=== PATIENT | female | born 1970 | race Caucasian/White ===

== ENCOUNTER 2023-06-20 18:23 | Emergency (ER) | payer BC, SELFPAY ==
[2023-06-20 18:28] VITALS: BP 141/79
[2023-06-20 19:52] VITALS: BMI 20.3
--- NOTE | 2023-06-20 20:14 | ED.GENMED ---
History of Present Illness
General
Chief Complaint: Post Operative Problem(s)
Source: patient
Time Seen by Provider: 06/20/23 19:35
Travel History
Have you had any contact with someone who has COVID-19?: No
Do you have any symptoms of coronavirus? Fever > 100 degrees, chills, cough, shortness of breath, sore throat, loss of taste or smell, muscle aches, or headache?: No
History of Present Illness
History of Present Illness:
53-year-old female presents to the emergency room for evaluation of confusion and feeling 'out of sorts'. Patient has been feeling this way since she had removal of her breast implants at [facility] on Wednesday. Patient was told that there
was difficulty arousing her from anesthesia. She was quite confused for a while after the procedure. Since being discharged she continues to feel like she has poor recollection and some confusion. She states she is not taking any prescription
medications for postoperative pain.
Past History
Past History
ED Past Medical History: None
ED Past Surgical History: None
Social History
Tobacco: Non-smoker
Alcohol: None
Personal: Single
Employment: Not employed
Phy Exam
Physical Exam
Physical Exam:
General: Awake, Alert, Oriented X3. No acute distress. Patient follows multistep instructions without difficulty. She is speaking quite clearly at this time.
Vitals: unremarkable
Head: Atraumatic
Eyes: Pupils equal, EOMI
Throat: Airway intact, no exudates
Neck: Trachea midline
Lungs: Clear and equal b/l
Heart: Regular rate, no murmurs
Abd: Soft, Nontender, No pulsatile mass
Neuro: Cranial nerves intact, muscle strength equal bilaterally, cerebellar exam normal
Skin: Warm, dry, no rash
Extremities: pulses equal b/l, no edema
Course
Orders/Labs/Results
Orders:
Orders
06/20/23 20:11
CT Head W/o Iv Contrast Urgent
Comment:
Reason For Exam: confusion since recent surgery
0.9% Sodium Chloride 500 ml [Nss] 500 ml IV BOLUS
06/20/23 20:20
Complete Blood Count/With Diff Urgent
Comprehensive Metabolic Panel Urgent
06/20/23 21:56
Urinalysis Reflex To Culture Urgent
Date Specimen was Collected: 06/20/23
Time Specimen was Collected: 21:54
Abnormal Lab Results
06/20/23
20:20
RBC 3.96 L 10^6/uL
(4.20-5.40)
Hct 36.0 L %
(37.0-47.0)
MCH 31.8 H pg
(27.0-31.0)
Glucose 105 H mg/dl
(70-99)
06/20/23 20:20
06/20/23 20:20
Vital Signs
Initial and Last Documented VS:
Initial Vital Signs
Temp Pulse Resp BP Pulse Ox
99.4 F 97 16 141/79 96
06/20/23 18:28 06/20/23 18:28 06/20/23 18:28 06/20/23 18:28 06/20/23 18:28
Last Documented Vital Signs
Temp Pulse Resp BP Pulse Ox
99.4 F 79 18 125/79 100
06/20/23 18:28 06/20/23 22:15 06/20/23 22:15 06/20/23 20:15 06/20/23 22:15
MDM/Problems Addressed
Differential Diagnosis Includes:
Hyponatremia, hypocalcemia, dehydration, intracranial event
MDM/Problems Addressed:
CT head is unremarkable. Labs are unremarkable. Patient has a nonfocal neurologic exam. Urinalysis is unremarkable. I suspect the patient is continuing to feel aftereffects from anesthesia. However there is no evidence for a unstable process
ongoing. She is completely oriented and able to provide a detailed history and have a in-depth conversation. So that she may subjectively feel unwell objectively she seems well. She denies taking any [id number] or prescription medications
for pain.
*Radiology
Radiology exam reviewed: radiology read reviewed
*Pulse Oximetry
Patient hypoxic: no
*Critical Care Note
Total Time (30-74mins, 75-104mins- exclusive of procedures): Not Applicable
Patient Management
Social determinants of health affecting care: Strong social support
ED Attending Note
-
Portions of this chart may have been created with voice recognition software.� Occasional wrong word or��sound alike� substitutions may have occurred due to the inherent limitations of voice recognition software.
Discharge Plan
Departure
Patient Disposition: Home (Routine Discharge)
Date of Disposition: 06/20/23
Time of Disposition: 22:48
Patient with high blood pressure during this ER visit?: No
Condition: Good
Discharge Problem:
Confusion
Instructions: Delirium (Confusion) (DC)
Prescriptions:
No Action
Lactobac/Bifidobac [Visbiome]
1 cap PO DAILY Qty: 30 0RF
hydrocodone-acetaminophen 5-300 mg tablet
1 tab PO Q12H PRN (Reason: severe pain) Qty: 10 0RF
ondansetron HCl 8 mg tablet
8 mg PO Q8H PRN (Reason: nausea and vomiting) Qty: 20 0RF
hyoscyamine sulfate [Levsin] 0.125 mg tablet
0.125 mg PO QID PRN (Reason: abdominal pain) Qty: 30 0RF
Referrals:
NONE,* [Family Provider] -
Activity Restrictions/Additional Instructions:
I suspect you are having lingering effects from anesthesia. This should slowly go away. Please follow up with your surgeon on Wednesday
Interventions
Interventions:
*Risk Screen - Suicide Last Done: 06/20/23 18:28
*General Assessment Last Done: 06/20/23 19:52
*Neglect/Abuse Screening Last Done: 06/20/23 18:28
ED- Fall Risk Assessment Last Done: 06/20/23 22:28
*ED COVID-19 Vaccine History Last Done: 06/20/23 18:28
ED-Skin Assessment Last Done: 06/20/23 22:35
[2023-06-20 20:15] VITALS: BP 125/79
[2023-06-20] MEDS: NSS 500 IV (20:17)
[2023-06-20 20:27] LABS: % Basophils 0.7 % (0-2); % Eosinophils 1.7 % (0-6); % Immature Granulocytes 0.4 % (0-0.5); % Lymphocytes 30.4 % (20.5-51.1); % Monocytes 5.1 % (1.7-9.3); % Neutrophils 61.7 % (42.2-75.2); Absolute Basophils 0.1 10^3/uL (0-0.2); Absolute Eosinophils 0.1 10^3/uL (0-0.7); Absolute Lymphocytes 2.2 10^3/uL (1.2-3.4); Absolute Monocytes 0.4 10^3/uL (0.1-0.6); Absolute Neutrophils 4.5 10^3/uL (1.4-6.5); Hemoglobin 12.6 g/dL (12.0-16.0); Mean Corpuscular Hgb 31.8 pg (27.0-31.0); Mean Corpuscular Volume 90.9 fL (81.0-99.0); Mean Platelet Volume 8.9 fL (7.4-10.4); Nucleated Red Blood Cells % 0 %; Platelet Count 287 10^3/uL (130-400); Red Blood Cell Count 3.96 10^6/uL (4.20-5.40); Red Cell Dist. Width 12.1 % (11.5-14.5); White Blood Cell Count 7.3 10^3/uL (4.8-10.8)
[2023-06-20 20:47] LABS: ALT (SGPT) 29 U/L (0-35); AST (SGOT) 36 U/L (14-36); Albumin 3.9 g/dl (3.5-5.0); Alkaline Phosphatase 78 U/L (38-126); Blood Urea Nitrogen 17 mg/dl (7-17); Calcium 9.5 mg/dl (8.4-10.2); Carbon Dioxide 30 mmol/L (22-30); Chloride 102 mmol/L (98-107); Estimated Creatinine Clearance 81 ml/min; Glucose 105 mg/dl (70-99); Potassium 4.1 mmol/L (3.5-5.1); Sodium 137 mmol/L (135-145); Total Bilirubin 0.3 mg/dl (0.2-1.3); Total Protein 6.3 g/dl (6.3-8.2); eGFR > 60.00
[2023-06-20 22:03] LABS: Urine Albumin Negative (Neg - Trace); Urine Bilirubin Negative (Negative); Urine Character Clear (Clear); Urine Color Straw; Urine Glucose Negative (Negative); Urine Ketone Negative (Negative); Urine Leukocyte Negative (Negative); Urine Nitrite Negative (Negative); Urine Occult Blood Negative (Negative); Urine Urobilinogen Negative (Neg - 1+)
[2023-06-20 22:36] VITALS: BP 124/73
[2023-06-20 23:00] VITALS: BP 117/73
[2023-06-20 23:14] VITALS: BP 130/81
[2023-06-20 23:20] VITALS: BP 130/81
== END 2023-06-20 23:23 | disposition home or self-care (01) ==
LOC: EMR 18:23
PROVIDERS: EMERGENCY PHYSICIAN Emergency Medicine
DX: R41.0 Disorientation, unspecified (principal); Z98.82 Breast implant status
CPT/HCPCS: 99284; 96360; 70450; 80053; 81003; 85025

== ENCOUNTER 2024-03-05 17:44 | Emergency (ER) | payer BC, SELFPAY ==
[2024-03-05 17:54] VITALS: BP 153/104
--- NOTE | 2024-03-05 18:19 | ED.GENMED ---
History of Present Illness
General
Chief Complaint: Urinary Symptoms
Source: patient
Exam Limitations: none
Time Seen by Provider: 03/05/24 17:58
History of Present Illness
History of Present Illness:
This is a 54 year old female that comes in with c/o UTI and back pain. States that she has had a UTI for the pasdt 17 days. State that she has taken 2 antibiotics with the first being Cipro and she had an allergic reaction. States that she had
trouble breathing and nausea. Then she was place on Bactrim DS. States that she is not getting any better and know she has back pain. Mostly on the left and a little on the right. States that her PCP is concerned that she is getting a Kidney
infection. State that she feels hot, has been nauseated and occasional diarrhea. States that she feels that she is in a brain fog. States that she has urinary frequency and burning. Denies any fever, chills, chest pain, SOB, abd pain, vomiting,
headache, dizziness.
Past History
Past History
ED Past Medical History: Other (Colitis, Renal calculus, UTI, ); Negative Asthma, HTN, Hypercholesterolemia or NIDDM
ED Past Surgical History: None and Other (Multiple breast surgery)
Social History
Tobacco: Non-smoker
Alcohol: None
Personal: Single
Living: alone
Employment: Not employed
Review of Systems
Review of Systems
All Other Systems: ROS reviewed and negative except as documented in HPI and ROS
Constitutional: Reports no symptoms; Denies fever or chills
EENT: Reports no symptoms
Respiratory: Reports no symptoms; Denies cough or trouble breathing
Cardiac: Reports no symptoms; Denies chest pain
ABD/GI: Reports nausea and diarrhea (Occasional); Denies abdominal pain or vomiting
: Reports dysuria and frequency; Denies urgency
Musculoskeletal: Reports back pain (back pain)
Skin: Reports no symptoms
Neurological: Reports other (Feels she has brain fog); Denies dizzy or headache
Psychiatric: Reports no symptoms
Phy Exam
General Physical Exam
General Presentation: no apparent distress
General age: appears stated age
General Skin: warm and dry
General Habitus: normal
General Mental: alert
General Hydration: appears well hydrated
ENT Exam
ENT Exam: TM's normal, pharynx normal and neck supple
Eye Exam
Eye Exam: EOMI
Cardiovascular Exam
Cardiovascular Exam: regular rate/rhythm, no edema, no murmur and normal peripheral pulses
Pulmonary Exam
Pulmonary Exam: lungs clear, no respiratory distress, no rales, chest non tender, no crackles, no rhonchi, no wheezing and no cough
Gastrointestinal Exam
Gastrointestinal Exam: normal bowel sounds, soft, no organomegaly, no pulsatile mass, non distended, cva tenderness (Left sided) and tender (Slight left sided abd tenderness with palpation)
Musculoskeletal Exam
Musculoskeletal Exam: full ROM and no edema
Skin Exam
Skin Exam: normal color, warm/dry, no rash and no petechia
Psychiatric Exam
Psychiatric Exam: normal mood/affect
Course
Orders/Labs/Results
Orders:
Orders
03/05/24 18:16
US Renal Only W/O Bladder Urgent
Comment:
Reason For Exam: CVA tenderness, back pain, UTI
03/05/24 18:17
Test Result ONCE
03/05/24 18:18
0.9% Sodium Chloride 500 ml [Nss] 500 ml IV BOLUS
Ketorolac [Toradol] 30 mg IV NOW STA
Ondansetron Injectable [Zofran] 4 mg IV NOW STA
03/05/24 18:34
Complete Blood Count/With Diff Urgent
Comprehensive Metabolic Panel Urgent
HCG, Serum Qualitative Screen Urgent
Urinalysis Reflex To Culture Urgent
Date Specimen was Collected: 03/05/24
Time Specimen was Collected: 18:21
Urine Microscopic Reflex Cult Urgent
Abnormal Lab Results
03/05/24
18:34
BUN 19 H mg/dl
(7-17)
AST 43 H U/L
(14-36)
ALT 39 H U/L
(0-35)
Ur Occult Blood Reflex Trace A
(Negative)
Leukocyte Esterase Rfl Trace A
(Negative)
Urine Bacteria (Reflex) Few A
(Negative)
03/05/24 18:34
03/05/24 18:34
Slight Dehydration. AST/ALT slightly elevated. Urine negative for infection. HCG negative.
Vital Signs
Initial and Last Documented VS:
Initial Vital Signs
Temp Pulse Resp BP Pulse Ox
98.4 F 91 16 153/104 100
03/05/24 17:54 03/05/24 17:54 03/05/24 17:54 03/05/24 17:54 03/05/24 17:54
Last Documented Vital Signs
Temp Pulse Resp BP Pulse Ox
98.3 F 83 20 110/70 98
03/05/24 19:43 03/05/24 19:43 03/05/24 19:43 03/05/24 19:43 03/05/24 19:50
MDM/Problems Addressed
Differential Diagnosis Includes:
UTI, Renal calculus
MDM/Problems Addressed:
This is a 54 year old female that comes in with c/o UTI and back pain. States that she has a UTI for the past 17 days. State that she has been on two antibiotics and nothing is helping. Now she has back pain.
Will get labs, IV fluids, medicate for pain and nausea and will get US as patient refused CT scan.
Back into see patient. Reviewed labs and US findings. Patient is discussing with Significant other wether to get a CT scan. Explained that she will need to drink and this takes 2 hours. Will await there decision.
patient has decided to wait. Explained that if she has fever, increased abd pain, or any other concerns please return to the emergency room
Chronic conditions affecting care:
UTI, Renal calculus
Acute Exacerbation and/or Progression of Chronic Illness:
NA
*Radiology
Radiology exam reviewed: radiology read reviewed (US- Left nephrolithiasis. No hydronephrosis. )
*Pulse Oximetry
Patient hypoxic: no
*EKG
Interpreted by ED Provider?: NA
Rate: EKG- N/A
*Gravure Printing Machinist Interpretation
Rate: Gravure Printing Machinist- N/A
*Critical Care Note
Total Time (30-74mins, 75-104mins- exclusive of procedures): Not Applicable
ED Attending Note
-
Portions of this chart may have been created with voice recognition software.� Occasional wrong word or��sound alike� substitutions may have occurred due to the inherent limitations of voice recognition software.
Discharge Plan
Departure
Patient Disposition: Home (Routine Discharge)
Date of Disposition: 03/05/24
Time of Disposition: 20:59
Patient with high blood pressure during this ER visit?: No
Condition: Good
Covid-19: Not Applicable
Discharge Problem:
Back pain
Instructions: Back Pain
Prescriptions:
No Action
Lactobac/Bifidobac [Visbiome]
1 cap PO DAILY Qty: 30 0RF
hydrocodone-acetaminophen 5-300 mg tablet
1 tab PO Q12H PRN (Reason: severe pain) Qty: 10 0RF
ondansetron HCl 8 mg tablet
8 mg PO Q8H PRN (Reason: nausea and vomiting) Qty: 20 0RF
hyoscyamine sulfate [Levsin] 0.125 mg tablet
0.125 mg PO QID PRN (Reason: abdominal pain) Qty: 30 0RF
Referrals:
Douglas Pedraza MD [Family Provider] - Follow up in 2-3 days
Activity Restrictions/Additional Instructions:
As discussed, your blood work shows very slight Dehydration. Your liver enzymes are slightly elevated. Your Urine is negative for infection. Your Ultrasound shows that there is a stone in the kidney but there is no hydronephrosis. This may be
musculoskeletal pain. You may use Tylenol 1000mg every 6 hours for pain. Heat or ice to the back which ever makes your feel better. IF YOU HAVE INCREASED ABD PAIN, FEVER, OR YOU HAVE ANY OTHER CONCERNS PLEASE RETURN TO THE EMERGENCY ROOM.
Interventions
Interventions:
*Risk Screen - Suicide Last Done: 03/05/24 17:54
*General Assessment Last Done: 03/05/24 18:53
*Neglect/Abuse Screening Last Done: 03/05/24 17:54
ED- Fall Risk Assessment Last Done: 03/05/24 19:50
*ED COVID-19 Vaccine History Last Done: 03/05/24 18:53
ED-Female Genitourinary Assessment Last Done: 03/05/24 18:54
Discharge Date and Time
Print Language: TURKISH
[2024-03-05] MEDS: ZOFRAN 4 MG IV (18:37)
[2024-03-05] MEDS: NSS 500 IV (18:37)
[2024-03-05 18:54] LABS: Urine Albumin Negative (Neg - Trace); Urine Bilirubin Negative (Negative); Urine Character Clear (Clear); Urine Color Yellow; Urine Glucose Negative (Negative); Urine Ketone Negative (Negative); Urine Leukocyte Trace (Negative); Urine Nitrite Negative (Negative); Urine Occult Blood Trace (Negative); Urine Specific Gravity 1.025 (<1.030); Urine Urobilinogen Negative (Neg - 1+)
[2024-03-05 18:56] LABS: % Eosinophils 2.1 % (0-6); % Immature Granulocytes 0.3 % (0-0.5); % Lymphocytes 29.2 % (20.5-51.1); % Monocytes 7.5 % (1.7-9.3); % Neutrophils 59.9 % (42.2-75.2); Absolute Basophils 0.1 10^3/uL (0-0.2); Absolute Eosinophils 0.2 10^3/uL (0-0.7); Absolute Lymphocytes 2.3 10^3/uL (1.2-3.4); Absolute Monocytes 0.6 10^3/uL (0.1-0.6); Absolute Neutrophils 4.7 10^3/uL (1.4-6.5); Hematocrit 43.1 % (37.0-47.0); Hemoglobin 14.6 g/dL (12.0-16.0); Mean Corp Hgb Conc. 33.9 g/dL (33.0-37.0); Mean Corpuscular Hgb 30.9 pg (27.0-31.0); Mean Corpuscular Volume 91.1 fL (81.0-99.0); Mean Platelet Volume 8.6 fL (7.4-10.4); Nucleated Red Blood Cells % 0 %; Platelet Count 332 10^3/uL (130-400); Red Blood Cell Count 4.73 10^6/uL (4.20-5.40); Red Cell Dist. Width 11.9 % (11.5-14.5); White Blood Cell Count 7.8 10^3/uL (4.8-10.8)
[2024-03-05 19:04] LABS: Urine Squamous Cell 26-30 /LPF (Few)
[2024-03-05 19:05] LABS: Urine Bacteria Few (Negative); Urine Red Blood Cell 0-2 /HPF (0-2)
[2024-03-05 19:15] LABS: ALT (SGPT) 39 U/L (0-35); AST (SGOT) 43 U/L (14-36); Albumin 4.5 g/dl (3.5-5.0); Alkaline Phosphatase 103 U/L (38-126); Blood Urea Nitrogen 19 mg/dl (7-17); Calcium 9.8 mg/dl (8.4-10.2); Carbon Dioxide 28 mmol/L (22-30); Chloride 101 mmol/L (98-107); Estimated Creatinine Clearance 62 ml/min; Glucose 92 mg/dl (70-99); Potassium 4.5 mmol/L (3.5-5.1); Sodium 138 mmol/L (135-145); Total Bilirubin 0.4 mg/dl (0.2-1.3); Total Protein 7.1 g/dl (6.3-8.2); eGFR > 60.00
[2024-03-05 19:16] LABS: HCG, Serum Qualitative Screen Negative
[2024-03-05 19:43] VITALS: BP 110/70
[2024-03-05 21:12] VITALS: BP 122/73
== END 2024-03-05 21:19 | disposition home or self-care (01) ==
LOC: EMR 17:44
PROVIDERS: Clinical Nurse Specialist Family Health; EMERGENCY PHYSICIAN Emergency Medicine; FAMILY PHYSICIAN Family Medicine
DX: M54.9 Dorsalgia, unspecified (principal); N20.0 Calculus of kidney; E86.0 Dehydration; Z87.440 Personal history of urinary (tract) infections
CPT/HCPCS: 96374; 96375; 96361; 99284; 76775; 80053; 81003; 81015; 84703; 85025

== ENCOUNTER 2025-03-01 20:03 | Emergency (ER) | payer BC, SELFPAY ==
[2025-03-01 20:07] VITALS: BP 138/94
[2025-03-01 20:20] VITALS: BP 139/105
[2025-03-01 20:31] VITALS: BMI 20.5
--- NOTE | 2025-03-01 20:33 | ED.GENMED ---
History of Present Illness
General
Chief Complaint: Post Operative Problem(s)
Source: patient and spouse
Exam Limitations: none
Time Seen by Provider: 03/01/25 20:16
Nursing documentation reviewed up to this point in time: agreed with
History of Present Illness
History of Present Illness:
55-year-old female with a past medical history as noted who presents to the emergency room with her for evaluation of GI symptoms in the setting of recent cosmetic surgery. Patient had facelift in [facility] with Dr. Billy Weller 1 week
ago. She was on 5-day course of Keflex and Valtrex which she completed postoperatively. She remains on TobraDex drops and erythromycin ointment. She has seen her plastic surgeon 3 times since the procedure for follow-up including appointment
today at 11 AM for suture removal. According to patient's surgeon was pleased with postoperative course as far as her facial swelling. She is here in the emergency room this evening for abdominal pain and diarrhea that she says has been
ongoing for the past few days. She describes pain that is consistent at around 5/10 intensity but escalates to a 10/10 intensity occasionally without a clear trigger. Pain is mainly in the epigastrium to periumbilical region. She has associated
nausea no vomiting. She has had profuse diarrhea over the past 48 hours. She has had fever she says and chills. She denies any urinary issues. While she does have some continued tightness in her face and discomfort in the face she denies any
swelling of the tongue or throat, trouble breathing. Denies other acute complaints.
Past History
Past History
ED Past Medical History: Other (Colitis, Renal calculus, UTI, ); Negative Asthma, HTN, Hypercholesterolemia or NIDDM
ED Past Surgical History: None and Other (Multiple breast surgery)
Social History
Tobacco: Non-smoker
Alcohol: None
Personal: Single
Living: alone
Employment: Not employed
Review of Systems
Review of Systems
All Other Systems: ROS reviewed and negative except as documented in HPI and ROS
Constitutional: Reports fever and chills
EENT: Reports other (Facial pain/swelling postoperatively); Denies sore throat
Respiratory: Denies trouble breathing
Cardiac: Denies chest pain
ABD/GI: Reports abdominal pain, nausea and diarrhea; Denies vomiting
: Denies flank pain
Musculoskeletal: Denies neck pain or back pain
Neurological: Denies headache
Phy Exam
Physical Exam
Physical Exam:
General: Awake, alert, nontoxic
Head: Normocephalic, atraumatic
Face: Patient has mild diffuse facial edema most marked periorbital region as well as around the lips and bridge of the nose; sutures in place around the eyelids
Eyes: Bilateral conjunctival injection without any discharge noted, pupils equal round and reactive to light bilaterally with EOMs intact
Throat: Airway intact, handling secretions, no swelling of the tongue, midline uvula without edema, no stridor
Neck: Trachea midline, supple without meningismus
Lungs: Clear to auscultation bilaterally, no wheezing, rales, rhonchi
Heart: Tachycardia with regular rhythm, no murmurs, gallops, or rubs
Abd: Soft, non distended, tender to palpation periumbilical region without peritoneal signs
Neuro: Grossly intact
Extremities: No edema in extremities, warm and well-perfused
Scores
Heart Failure Risk
Heart Failure Risk Score: Not Applicable
Heart Score for Chest Pain Patients
STEMI patient?: Not applicable
Withdrawal Assessment of Alcohol
Withdrawal Assessment Completed?: Not applicable
Course
Orders/Labs/Results
Orders:
Orders
03/01/25 20:26
Complete Blood Count/With Diff Urgent
Comprehensive Metabolic Panel Urgent
HCG, Serum Qualitative Screen Urgent
Lactic Acid Urgent
Lipase Urgent
03/01/25 20:27
Urinalysis Urgent
Date Specimen was Collected: 03/01/25
Time Specimen was Collected: 20:27
Urine Microscopic Urgent
Date Specimen was Collected: 03/01/25
Time Specimen was Collected: 20:27
03/01/25 20:30
CT Abd/pelvis Wo Iv Cont Urgent
Reason For Exam: abd pain, diarrhea, nausea
Morphine Sulfate 4 mg IV NOW STA
Ondansetron Injectable [Zofran] 4 mg IV NOW STA
Test Result ONCE
03/01/25 20:31
0.9% Sodium Chloride 1000 ml [Nss] 1,000 ml IV BOLUS
03/01/25 20:45
STOOL [C difficile Antigen & Toxins] Urgent
LUZ Source: Feces/Stool
Specimen Description:
Stool Culture Urgent
LUZ Source: Feces/Stool
Specimen Description:
Abnormal Lab Results
03/01/25 03/01/25
20:26 20:27
WBC 14.2 H 10^3/uL
(4.8-10.8)
Abs Immat Gran (auto) 0.3 H 10^3/uL
(0-0.05)
Absolute Neuts (auto) 9.1 H 10^3/uL
(1.4-6.5)
Absolute Monos (auto) 0.9 H 10^3/uL
(0.1-0.6)
Immature Gran % 1.8 H %
(0-0.5)
Carbon Dioxide 33 H mmol/L
(22-30)
BUN 18 H mg/dl
(7-17)
Glucose 104 H mg/dl
(70-99)
AST 46 H U/L
(14-36)
ALT 61 H U/L
(0-35)
Urine Bacteria Moderate A
(Negative)
Urine Albumin 1+ A
(Neg - Trace)
03/01/25 20:26
03/01/25 20:26
Vital Signs
Pulse: 104
Initial and Last Documented VS:
Initial Vital Signs
Temp Pulse Resp BP Pulse Ox
36.7 C 112 20 138/94 99
03/01/25 20:07 03/01/25 20:07 03/01/25 20:07 03/01/25 20:07 03/01/25 20:07
Last Documented Vital Signs
Temp Pulse Resp BP Pulse Ox
36.7 C 112 20 139/105 96
03/01/25 20:07 03/01/25 20:07 03/01/25 20:07 03/01/25 20:20 03/01/25 20:35
MDM/Problems Addressed
Differential Diagnosis Includes:
Colitis, diverticulitis, appendicitis, cholelithiasis, cholecystitis, pancreatitis, gastritis/PUD
MDM/Problems Addressed:
55-year-old female who is 1 week out from facial cosmetic surgery in [place] presents to the ER with abdominal pain and diarrhea, subjective fever. She is tachycardic but otherwise normal vitals. Physical exam is as above. She does have
continued facial swelling but relatively mild and apparently improving�had an appointment earlier today with her plastic surgeon. Plan to place an IV and check labs including a CBC and a CMP, lipase, hCG. Check urinalysis. Provide some IV fluids,
pain control and antiemetic. Stool studies if able. Will discuss with surgeon given recent procedure.
Labs reviewed: She does have a leukocytosis to 14.2 likely postsurgical. Chemistry slightly elevated BUN and. Marginal transaminitis stable. Urinalysis appears contaminated�no pyuria to suggest infection especially in the absence of urinary
symptoms. CT shows no acute abnormalities. Overall I suspect this is the case of mild colitis in the setting of recent antibiotic use. No diarrhea here. I think bland diet and vigorous fluids at home is a reasonable course of management. Would
hold off on further antibiotics. I did speak with the surgical team in [place] to update. At this point we will plan for discharge patient can follow-up postoperatively with her surgical team. All questions answered.
*Radiology
Radiology exam reviewed: radiology read reviewed
*Pulse Oximetry
SaO2: 96
Oxygen Mode of Delivery: Room air
Patient hypoxic: no (96%)
*Critical Care Note
Total Time (30-74mins, 75-104mins- exclusive of procedures): Not Applicable
Data Reviewed
Source: patient and spouse
Patient Management
Discussion with other providers: Cake Batter Mixer (Discussed with plastic surgeon)
ED Attending Note
-
Portions of this chart may have been created with voice recognition software.� Occasional wrong word or��sound alike� substitutions may have occurred due to the inherent limitations of voice recognition software.
Discharge Plan
Departure
Patient Disposition: Home (Routine Discharge)
Date of Disposition: 03/01/25
Time of Disposition: 22:33
Patient with high blood pressure during this ER visit?: Yes
Discharge Problem:
Diarrhea, Post-op pain, Dehydration
Instructions: Dehydration in adults - ED (DC), Diarrhea in adults - ED (DC)
Prescriptions:
No Action
Lactobac/Bifidobac [Visbiome]
1 cap PO DAILY Qty: 30 0RF
hydrocodone-acetaminophen 5-300 mg tablet
1 tab PO Q12H PRN (Reason: severe pain) Qty: 10 0RF
ondansetron HCl 8 mg tablet
8 mg PO Q8H PRN (Reason: nausea and vomiting) Qty: 20 0RF
hyoscyamine sulfate [Levsin] 0.125 mg tablet
0.125 mg PO QID PRN (Reason: abdominal pain) Qty: 30 0RF
Referrals:
Douglas Pedraza MD [Family Provider, Family Practice]
Billy Weller MD [Non-Admitting Privileges, Otology] - Call in 1-3 days for appt
Activity Restrictions/Additional Instructions:
Thank you for visiting the Emergency Department at [facility].
1. Please schedule a follow up appointment as directed. Call first thing tomorrow morning to make an appointment.
2. If indicated, please take your medications as instructed and indicated on discharge paperwork.
3. If any of your symptoms do not improve, or persist, or become more severe within 6-12 hours, please return to the emergency department for further care.
4. Please return to the emergency department if you develop a headache, neck pain/stiffness, fever greater than 100.4F, chest pain, shortness of breath, persistent nausea, vomiting, slurred speech, difficulty walking, numbness/tingling, weakness,
signs of infection or any other symptoms that are worrisome to you.
Please call [phone] if you have any questions.
Interventions
Interventions:
*Risk Screen - Suicide Last Done: 03/01/25 20:32
*General Assessment Last Done: 03/01/25 20:07
*Neglect/Abuse Screening Last Done: 03/01/25 20:32
*ED- Fall Risk Assessment Last Done: 03/01/25 20:32
*ED COVID-19 Vaccine History Last Done: 03/01/25 20:32
*ED Influenza Vaccine History Last Done: 03/01/25 20:32
ED-Skin Assessment Last Done: 03/01/25 20:33
Discharge Date and Time
Print Language: J[place]
[2025-03-01 20:37] LABS: Hematocrit 41.8 % (37.0-47.0); Hemoglobin 14.3 g/dL (12.0-16.0); Mean Corp Hgb Conc. 34.2 g/dL (33.0-37.0); Mean Corpuscular Volume 89.5 fL (81.0-99.0); Nucleated Red Blood Cells % 0 %; Platelet Count 372 10^3/uL (130-400); Red Cell Dist. Width 11.9 % (11.5-14.5)
[2025-03-01 20:37] LABS: Urine Character Clear (Clear)
[2025-03-01] MEDS: NSS 1000 IV (20:37)
[2025-03-01] MEDS: ZOFRAN 4 MG IV (20:41)
[2025-03-01 20:49] LABS: Urine Red Blood Cell 0-2 /HPF (0-2); Urine Squamous Cell 0-2 /LPF (Few)
[2025-03-01] MEDS: MORPHINE SULFATE 4 MG IV (20:55)
[2025-03-01 21:00] VITALS: BP 126/71
[2025-03-01 21:01] LABS: HCG, Serum Qualitative Screen Negative
[2025-03-01 21:06] LABS: ALT (SGPT) 61 U/L (0-35); AST (SGOT) 46 U/L (14-36); Albumin 4.3 g/dl (3.5-5.0); Alkaline Phosphatase 121 U/L (38-126); Blood Urea Nitrogen 18 mg/dl (7-17); Calcium 9.9 mg/dl (8.4-10.2); Carbon Dioxide 33 mmol/L (22-30); Chloride 98 mmol/L (98-107); Estimated Creatinine Clearance 70 ml/min; Glucose 104 mg/dl (70-99); Lipase 37 U/L (23-300); Potassium 4.4 mmol/L (3.5-5.1); Sodium 137 mmol/L (135-145); Total Protein 7.1 g/dl (6.3-8.2); eGFR > 60.00
[2025-03-01 22:00] VITALS: BP 117/73
[2025-03-01 22:40] VITALS: BP 129/82
== END 2025-03-01 23:01 | disposition home or self-care (01) ==
LOC: EMR 20:03
PROVIDERS: EMERGENCY PHYSICIAN Emergency Medicine; FAMILY PHYSICIAN Family Medicine
DX: R19.7 Diarrhea, unspecified (principal); G89.18 Other acute postprocedural pain; E86.0 Dehydration; R03.0 Elevated blood-pressure reading, without diagnosis of hypertension
CPT/HCPCS: 99284; 96374; 96375; 96361; 74176; 80053; 81003; 81015; 83605; 83690; 84703; 85025

== ENCOUNTER 2025-03-17 01:37 | Emergency (ER) | payer BC, SELFPAY ==
[2025-03-17 01:39] VITALS: BP 132/66
--- NOTE | 2025-03-17 02:10 | ED.GENMED ---
History of Present Illness
General
Chief Complaint: Skin Problem
Source: patient
Exam Limitations: none
Time Seen by Provider: 03/17/25 01:57
Nursing documentation reviewed up to this point in time: agreed with
History of Present Illness
History of Present Illness:
Pt presents to ED secondary to persistent pain over left hand, where peripheral iv was placed for her surgical procedure 3 wks ago. Denies fever. Denies new trauma. Pt feels puffiness over the blood vessel extending up to her forearm.
Past History
Past History
ED Past Medical History: Other (Colitis, Renal calculus, UTI, ); Negative Asthma, HTN, Hypercholesterolemia or NIDDM
ED Past Surgical History: None and Other (Multiple breast surgery)
Social History
Tobacco: Non-smoker
Alcohol: None
Personal: Single
Living: alone
Employment: Not employed
Review of Systems
Review of Systems
Allergies reviewed?: Yes
All Other Systems: ROS reviewed and negative except as documented in HPI and ROS
Constitutional: Reports no symptoms
ABD/GI: Reports no symptoms
Skin: Reports other (vein swelling with pain)
Neurological: Reports no symptoms
Phy Exam
Physical Exam
Physical Exam:
General: well nourished female, in no acute distress. afebrile
Heent: nc/at. eomi
Neuro: aao x 3. no focal neurological deficit
Skin: left hand: punctured sited noted over dorsal aspect with prominent vein noted without surrounding erythema/ecchymosis, extending up to distal forearm
Psych: pleasant and cooperative
Course
Vital Signs
Initial and Last Documented VS:
Initial Vital Signs
Temp Pulse Resp BP Pulse Ox
97.8 F 86 20 132/66 100
03/17/25 01:39 03/17/25 01:39 03/17/25 01:39 03/17/25 01:39 03/17/25 01:39
Last Documented Vital Signs
Temp Pulse Resp BP Pulse Ox
97.8 F 86 20 132/66 100
03/17/25 01:39 03/17/25 01:39 03/17/25 01:39 03/17/25 01:39 03/17/25 02:11
MDM/Problems Addressed
MDM/Problems Addressed:
History and exam consistent with superficial thrombophlebitis. Will advised NSAID along with warm compress application, as well as PCP f/u as outpatient
*Pulse Oximetry
SaO2: 100
Oxygen Mode of Delivery: Room air
Patient hypoxic: no
*Critical Care Note
Total Time (30-74mins, 75-104mins- exclusive of procedures): Not Applicable
ED Attending Note
-
Portions of this chart may have been created with voice recognition software.� Occasional wrong word or��sound alike� substitutions may have occurred due to the inherent limitations of voice recognition software.
Discharge Plan
Departure
Patient Disposition: Home (Routine Discharge)
Date of Disposition: 03/17/25
Time of Disposition: 02:10
Patient with high blood pressure during this ER visit?: Yes
Condition: Good
Discharge Problem:
Superficial thrombophlebitis
Instructions: Superficial vein phlebitis and thrombosis
Prescriptions:
No Action
Lactobac/Bifidobac [Visbiome]
1 cap PO DAILY Qty: 30 0RF
hydrocodone-acetaminophen 5-300 mg tablet
1 tab PO Q12H PRN (Reason: severe pain) Qty: 10 0RF
ondansetron HCl 8 mg tablet
8 mg PO Q8H PRN (Reason: nausea and vomiting) Qty: 20 0RF
hyoscyamine sulfate [Levsin] 0.125 mg tablet
0.125 mg PO QID PRN (Reason: abdominal pain) Qty: 30 0RF
Activity Restrictions/Additional Instructions:
As discussed, please continue to apply warm compress to affected area along with use of ibuprofen at home, as well as PCP follow-up in 1 to 2 weeks.
Interventions
Interventions:
*Risk Screen - Suicide Last Done: 03/17/25 01:39
*General Assessment Last Done: 03/17/25 01:39
*Neglect/Abuse Screening Last Done: 03/17/25 01:39
*ED- Fall Risk Assessment Last Done: 03/17/25 01:58
*ED COVID-19 Vaccine History Last Done: 03/17/25 01:58
*ED Influenza Vaccine History Last Done: 03/17/25 01:58
*Nursing Disposition Last Done: 03/17/25 02:16
Discharge Date and Time
Discharge Date/Time: 03/17/25 02:17
Print Language: ROMANIAN
== END 2025-03-17 02:17 | disposition home or self-care (01) ==
LOC: EMR 01:37
PROVIDERS: EMERGENCY PHYSICIAN Emergency Medicine; FAMILY PHYSICIAN Internal Medicine
DX: T80.1XXA Vascular complications following infusion, transfusion and therapeutic injection, initial encounter (principal); I80.8 Phlebitis and thrombophlebitis of other sites; M79.642 Pain in left hand; Y83.8 Other surgical procedures as the cause of abnormal reaction of the patient, or of later complication, without mention of misadventure at the time of the procedure; K52.9 Noninfective gastroenteritis and colitis, unspecified; Z87.442 Personal history of urinary calculi; Z87.440 Personal history of urinary (tract) infections
CPT/HCPCS: 99282